=== PATIENT | female | born 1950 | race Two or more races ===

== ENCOUNTER → 2022-12-12 | Emergency (ER) | payer OTHER ==
[~2022-12-12] VITALS: Ht 152.4 cm; Wt 68.0 kg
[~2022-12-12] MED LIST: COZAAR25 MG PO; IPRATROPIU0.2 MG/1 M IH; LEVO-T75 MCG PO; MILLIPRED5 MG PO
== END | disposition home or self-care (01) ==
LOC: ER 12:20
DX: M54.9 Dorsalgia, unspecified (principal); R06.02 Shortness of breath
CPT/HCPCS: 36415; 71250; 94640; 96365; 99284; J1885; J2930